=== PATIENT | female | born 1965 | race Caucasian/White ===

== ENCOUNTER 2020-11-29 16:45 | Inpatient (IN) | payer OTHER, SELFPAY ==
[2020-11-29] VITALS (9 sets, daily range): BP systolic 120–142; BP diastolic 70–80; PULSE 93–108; RESP 20–26; TEMP 37–39.4; O2SAT 82–99; BMI 37.9
--- NOTE | ~2020-11-29 | XR_ITS ---
EXAMINATION: XR chest 1V portable DATE: 12/03/2020 10:07 INDICATION: COVID-19 pneumonia. TECHNIQUE: A single frontal view of the chest was obtained. COMPARISON: Chest single view 11/29/2020 FINDINGS: There are patchy airspace opacities in all lung zones bilaterally with a peripheral predomi nance with relative sparing of the lung apices. No pleural effusion or pneumothorax. The heart size i s normal. IMPRESSION: 1. Worsened diffuse lung disease, consistent with COVID-19 pneumonia. Reviewed, dictated and finalized at location A.
--- NOTE | ~2020-11-29 | XR_ITS ---
XR chest 1V portable 11/29/2020 17:41 Indication: Hypoxia, fever and weakness Procedure: AP portable chest Comparison: No prior studies for comparison. Findings: Bibasilar airspace disease, compatible with pneumonia. Heart size upper normal. No signific ant effusion or pneumothorax. No acute osseous abnormality. Impression: 1: Bibasilar airspace disease, compatible with pneumonia. Reviewed, dictated and finalized at location A. Impression: 1: Bibasilar airspace disease, compatible with pneumonia.
--- NOTE | 2020-11-29 17:24 | ECG_ITS ---
Measurements Intervals [place] Rate: 97 P: 50 FL: 145 QRS: -28 QRSD: 106 T: 81 QT: 334 QTc: 424 Interpretive Statements SINUS RHYTHM BORDERLINE ST-T WAVE ABNORMALITY- HIGH LATERAL LEADS BASELINE ARTIFACT- I, II, III, AVR, AVL, AVF, V1-V6 BORDERLINE ECG Electronically Signed On 11-29-2020 18:59:23 CDT by Newton Quiles D.O.
[2020-11-29 17:42] LABS: Basophils Percent Auto 0.3 % (0.2-1.2); Eosinophils Absolute Auto 0.1 K/mm3 (0-0.3); Eosinophils Percent Auto 2.2 % (0-4.4); Hematocrit 43.7 % (37.0-47.0); Hemoglobin 13.7 g/dL (12.0-15.0); Immature Granulocyte Absolute 0.02 K/mm3 (0.00-0.031); Immature Granulocyte Percent A 0.3 % (0-0.5); Lymphocytes Absolute Auto 1.72 K/mm3 (0.9-3.2); Lymphocytes Percent Auto 29.3 % (18.3-44.2); Mean Corpuscular HGB Conc 31.4 g/dl (32-36); Mean Corpuscular Hemoglobin 28.5 pg (26-34); Mean Corpuscular Volume 90.9 fl (80-100); Mean Platelet Volume 10.6 fl (7.4-10.4); Monocytes Absolute Auto 0.4 K/mm3 (0.1-0.6); Neutrophils Absolute Auto 3.6 K/mm3 (1.3-6.7); Neutrophils Percent Auto 61.9 % (45.5-73.1); Platelet Count Result 159 k/mm3 (150-375); Red Blood Count 4.81 M/mm3 (4.2-5.4); White Blood Count 5.9 K/mm3 (4.5-10.0)
[2020-11-29 18:30] LABS: Anion Gap 10 mmol/L (8-16); Blood Urea Nitrogen 11 mg/dL (7-17); Calcium 8.4 mg/dL (8.4-10.2); Carbon Dioxide 29 mmol/L (22-30); Chloride 94 mmol/L (98-107); Estimated Glomerular Filt Rate > 60; Glucose 100 mg/dL (65-105); Potassium 3.4 mmol/L (3.4-5.0); Sodium 133 mmol/L (137-145)
[2020-11-29 19:01] LABS: Alveolar/Arterial O2 Gradient 86.4 mmHg; Base Excess ABG 2.8 mEq/l (+/-2.0); Fractional Inspired Oxygen 32 %; HCO3 ABG 26.7 mEq/l (22.0-26.0); Oxygen Content ABG 18.9 %vol (16.0-22.0); Oxygen Saturation ABG 97.7 % (95.0-100.0); Oxyhemoglobin 95.8 % THb (90.0-100.0); PCO2 ABG 38.7 mmHg (35.0-45.0); PO2 ABG 96.5 mmHg (80.0-100.0); PO2 FiO2 Ratio Arterial Blood 3.02 %; Site Drawn RIGHT BRACHIAL; pH ABG 7.457 (7.350-7.450)
[2020-11-29 19:02] LABS: Device NASAL CANNULA
[2020-11-29 19:31] LABS: Prothrombin Time 13.1 Seconds (11.1-14.7)
[2020-11-29 19:35] LABS: Lactic Acid Reflex 0.8 mmol/L (0.7-2.1)
--- NOTE | 2020-11-29 19:56 | ED.SOB ---
HPI - SOB/Dyspnea General Chief Complaint: Shortness of Breath/Dyspnea Stated Complaint: low oxygen level/neg covid test Time Seen by Provider: 11/29/20 18:22 Source: patient and RN notes reviewed Mode of arrival: ambulatory Limitations: no limitations History of Present Illness HPI Narrative: Patient is 55 years old white female presents with shortness of breath, fever, chills, headache, shortness of breath and the cough started 5 days ago. Patient had negative rapid Covid test today at the urgent care. When I asked the patient why SHE did not get vaccinated for COVID-19, she answered because she does not get sick. History of hypertension, patient denied any smoking Related Data Home Medications Medication Instructions Recorded Confirmed amlodipine 10 mg PO DAILY 11/29/20 11/29/20 hydrochlorothiazide 12.5 mg PO DAILY 11/29/20 11/29/20 Allergies Allergy/AdvReac Type Severity Reaction Status Date / Time No Known Allergies Allergy Verified 11/29/20 17:13 Review of Systems Review of Systems: Narrative: CONSTITUTIONAL: Denies fever, chills, or sweats. EYES: Denies visual changes, redness, or discharge. ENT: Denies rhinorrhea, congestion, sore throat, or otalgia. CARDIOVASCULAR: Denies chest pain, palpitations, or edema. RESPIRATORY: Denies cough or dyspnea. GASTROINTESTINAL: Denies abdominal pain, nausea, vomiting, or diarrhea. GENITOURINARY: Denies dysuria or hematuria. SKIN: Denies rash or itching. MUSCULOSKELETAL: Denies back pain, joint pain, or myalgia. NEUROLOGIC: Denies headache, numbness, or weakness. PSYCHIATRIC: Denies anxiety or depression. Exam Narrative: Exam Narrative: General appearance: Well-developed, well-nourished Skin: Normal color Head: Normocephalic, nontraumatic Eyes: Clear conjunctiva ENT: Oropharynx normal, ears normal, nose normal Neck: Supple, nontender Chest and respiratory: Airway patent, no respiratory distress, no accessory muscle use, few rales at the bases bilaterally Heart: Regular rate/rhythm Abdomen: Soft, nontender, no organomegaly, quiet bowel sounds Vascular: Normal peripheral pulses, normal capillary refill. Musculoskeletal: Normal range of motion, nontender back Neurologic: Alert and oriented ?3, JAZZ MUSICIAN is normal as tested, no gross motor deficit Course Course Emergency Course: Stable Vital Signs Vital signs: Vital Signs Temperature 39.4 C H 11/29/20 17:10 Pulse Rate 108 H 11/29/20 17:10 Respiratory Rate 26 H 11/29/20 17:10 Blood Pressure 142/80 H 11/29/20 17:10 Pulse Oximetry 82 L 11/29/20 17:10 Temperature 39.4 C H 11/29/20 17:10 Pulse Rate 97 11/29/20 19:39 Respiratory Rate 20 11/29/20 19:38 Blood Pressure 124/71 11/29/20 19:38 Pulse Oximetry 97 11/29/20 19:44 MDM - SOB/Dyspnea MDM Narrative Medical decision making narrative: COVID-19 infection versus community-acquired pneumonia is my concern. Labs, chest x-ray, ABG on room air, blood culture ordered. Further plan to follow Patient not been vaccinated for COVID-19. Differential Diagnosis Differential diagnosis: Likely community acquired pneumonia and other (COVID-19 infection) Lab Data Result diagrams: 11/29/20 17:35 11/29/20 18:12 Labs: Lab Results 11/29/20 11/29/20 11/29/20 Range/Units 17:35 18:12 19:06 WBC 5.9 (4.5-10.0) K/mm3 RBC 4.81 (4.2-5.4) M/mm3 Hgb 13.7 (12.0-15.0) g/dL Hct 43.7 (37.0-47.0) % MCV 90.9 (80-100) fl MCH 28.5 (26-34) pg MCHC 31.4 L (32-36) g/dl RDW 14.0 (11.5-14.5) % Plt Count 159 (150-375) k/mm3 MPV 10.6 H (7.4-10.4) fl Immature Gran % (Auto) 0.3 (0-0.5) % Neut % (Auto) 61.9 (45.5-
[2020-11-29 20:15] LABS: D Dimer 1.39 ug/mL (<0.48)
[2020-11-29 20:51] LABS: Alanine Aminotransferase 99 U/L (4-35)
--- NOTE | 2020-11-29 21:22 | PHAR ---
REMDESEVIR RAPID TEST FOR COVID WAS NEGATIVE EARLIER TODAY. PCR WAS DRAWN AROUND 1900 AND WILL NOT RESULT UNTIL TOMORROW AFTERNOON. SPOKE W/ DR. MITTAL AND HE IS CONFIDENT OF CLINICAL SIGNS/SYMPTOMS OF COVID. WILL START REMDESEVIR IN LIEU OF A POSITIVE TEST WHILE PCR RESULT IS PENDING.
[2020-11-30] VITALS: BP 121/60; PULSE 95; RESP 20; TEMP 36.7; O2SAT 96
--- NOTE | 2020-11-30 00:36 | ADMGEN ---
This patient, Rebeca Navarro, was admitted to [facility] Surg Room 311-01. Patient/family oriented to hospital policies and general routines including ID bracelet, bed and alarms, visiting hours, pain management, procedures, bathroom and other care routines, personal items, smoking policy, room service/diet, and visiting hours. Information on how to activate the Rapid Response Team has been discussed. Patient/Family are encouraged to report perceived risks to care and to ask questions if they do not understand what they are told or what they should do.
[2020-11-30] MEDS: REMDESIVIR 200 MG/NS 250 ML 200 MG/250 ML BAG 250 MG IVPB (03:37)
--- NOTE | 2020-11-30 03:44 | PM.IMHP ---
H&P: HPI History of Present Illness Date/Time: 11/30/20 03:44 Chief Complaint: SHORTNESS OF BREATH Narrative: THIS IS A 55-YEAR-OLD FEMALE WITH PAST MEDICAL HISTORY SIGNIFICANT FOR HYPERTENSION. SHE HAS BEEN ON THE ROLE WITH HER HOSPITAL FOR THE LAST 50 DAYS THEY HAVE VISITED SEVERAL TOURIST ATTRACTIONS ALSO ATTENDED A WEDDING OF ROUGHLY 50 PEOPLE IN THE OUTDOOR. PATIENT STATES THAT HER AND HER STARTED FEELING SICK WITH COUGH SHORTNESS OF BREATH NASAL CONGESTION AND DECIDED TO RETURN HOME IN CASE THAT THEY WERE GETTING SEEN SHE WENT TO URGENT CARE WHERE RAPID COVID TESTS RETURN NEGATIVE BUT PATIENT CONTINUED TO HAVE WORSENING SYMPTOMS OF MUSCLE ACHES AND PAINS FEVER CHILLS RIGORS. PRELIMINARY WORKUP IN THE EMERGENCY ROOM WAS SIGNIFICANT FOR CHEST X-RAY WITH INFILTRATES. Review of Systems Review of Systems: Narrative: COUGH SHORTNESS OF BREATH CHILLS Constitutional: Constitutional: Reports chills, Reports fatigue, Reports fever(s) and Reports lethargy Eyes: Eyes: Denies change in vision ENT: Reports nasal congestion and Reports nasal discharge Cardiovascular: Cardiovascular: Reports irregular heart rhythm, Denies leg edema, Reports radiating jaw, neck or arm pain and Reports palpitations Respiratory: Respiratory: Reports cough and Reports dyspnea Gastrointestinal: Gastrointestinal: Denies abdominal pain, Denies nausea and Denies vomiting Genitourinary: Genitourinary: Reports no additional female genitourinary complaints Musculoskeletal: Musculoskeletal: Reports myalgias Integumentary/Breasts: Skin/Breast: Denies rash Neurologic: Reports system reviewed and no additional complaints, except as documented Psychiatric: Psychiatric: Reports no additional psychiatric complaints Endocrine: Endocrine: Reports no additional endocrine complaints Hematologic/Lymphatic: Hematologic/Lymphatic: Reports no additional hematologic/lymphatic complaints Allergic/Immunologic: Allergic/Immunologic: Reports no additional allergic/immunologic complaints [facility] Social History Social History Smoking status: Never smoker Alcohol intake: current Drinks per week: 1 Substance use: never Gender identity (if verbalized by the patient): Female Spiritual care concerns: No Meds Home Medications and Allergies Home Medications Medication Instructions Recorded Confirmed Type amlodipine 10 mg PO DAILY 11/29/20 11/29/20 History hydrochlorothiazide 12.5 mg PO DAILY 11/29/20 11/29/20 History Allergies Allergy/AdvReac Type Severity Reaction Status Date / Time No Known Allergies Allergy Verified 11/29/20 17:13 Vital Signs Vital Signs - 24 hr 11/29/20 17:10 11/29/20 17:38 11/29/20 18:55 Temperature 103 F H Pulse Rate 108 H 101 H 98 Respiratory Rate 26 H 20 20 Blood Pressure 142/80 H 133/71 130/72 Pulse Oximetry 82 L 99 98 11/29/20 19:38 11/29/20 19:39 11/29/20 19:44 Temperature Pulse Rate 97 97 Respiratory Rate 20 Blood Pressure 124/71 Pulse Oximetry 97 97 11/29/20 20:43 11/29/20 21:00 11/29/20 22:37 Temperature 98.6 F Pulse Rate 100 93 Respiratory Rate 22 H 20 Blood Pressure 127/73 120/70 Pulse Oximetry 97 95 91 11/30/20 00:00 Temperature 98.0 F Pulse Rate 95 Respiratory Rate 20 Blood Pressure 121/60 Pulse Oximetry 96 Exam Narrative: Exam Narrative: SITTING IN BED Const: General: comfortable, no acute distress, well developed, alert, awake and ill appearing acutely Nutritional Appearance: average body habitus Orientation/consciousness: patient oriented x3 HENMT: Head: normal to inspection, normocephalic and atraumatic Ears: hearing grossly normal bilaterally General nose exam: Normal external nose present Face and sinus: normal facial exam Mouth: Yes Normal oral and palatal mucosa present Eyes: General: appearance normal, both eyes and all related structures Alignment and Position: alignment normal
[2020-11-30 04:00] VITALS: BP 130/63; PULSE 92; RESP 20; TEMP 36.8; O2SAT 93
[2020-11-30 06:34] LABS: INR 0.9; Prothrombin Time 12.5 Seconds (11.1-14.7)
[2020-11-30 06:56] LABS: Alanine Aminotransferase 84 U/L (4-35); Estimated CRCL calculation 79 ml/min; Estimated Glomerular Filt Rate > 60
[2020-11-30 08:00] VITALS: BP 133/62; PULSE 95; RESP 22; TEMP 37.1; O2SAT 94
[2020-11-30] MEDS: DEXAMETHASONE SOD PHOS INJ 4 MG/ML VIAL 6 MG IV PUSH (09:06)
[2020-11-30] MEDS: ENOXAPARIN 40 MG/0.4 ML SYRINGE SUB-Q ×2 (09:07→20:19)
[2020-11-30] MEDS: amLODIPine BESYLATE 5 MG TABLET 10 MG PO (09:07)
[2020-11-30 12:00] VITALS: BP 131/64; PULSE 85; RESP 20; TEMP 36.4; O2SAT 93
[2020-11-30 16:00] VITALS: BP 122/68; PULSE 86; RESP 20; TEMP 36.4; O2SAT 92
--- NOTE | 2020-11-30 18:12 | PM.IMPN ---
Progress Note: A&P Assessment and Plan (1) Acute respiratory failure with hypoxia: Code(s): J96.01 - Acute respiratory failure with hypoxia Status: Acute Assessment and Plan: PATIENT IS CURRENTLY ON SUPPLEMENTAL OXYGEN BY NASAL CANNULA BREATHING TREATMENTS LIKELY SECONDARY TO PNEUMONIA AWAITING COVID-19 PCR BLOOD CULTURES IN PROGRESS (2) Pneumonia: Qualifiers: Laterality: bilateral Lung location: lower lobe of lung Pneumonia type: due to unspecified organism Qualified Code(s): J18.9 - Pneumonia, unspecified organism Code(s): J18.9 - Pneumonia, unspecified organism Status: Acute Assessment and Plan: REMDESIVIR AND DEXAMETHASONE DAY 2 AT 2200 ROCEPHIN AND ZITHROMAX DAY 2 THIS PM SUPPORTIVE CARE (3) Hyponatremia: Code(s): E87.1 - Hypo-osmolality and hyponatremia Status: Acute Assessment and Plan: HOLDING HYDROCHLOROTHIAZIDE EUVOLEMIC LIKELY COMPONENT OF SIADH WELL 11/30 NA 133 Subjective Date/time seen: 11/30/20 18:12 Interval history: Admitted November 29 with cough shortness of breath pulmonary infiltrates. 11/30: COUGH PRODUCTIVE OF SCANT CLEAR SPUTUM. NO SOB ON 4L O2. NO CP. MILD DIARRHEA. NO DYSGEUSIA OR ANOSMIA. NO MYALGIAS. Review of Systems Review of Systems: All systems reviewed & are unremarkable except as noted in HPI and below Exam Narrative: Exam Narrative: HEENT: PERRL, sclerae nonicteric, pharyngeal mucosa pink and intact NECK: No JVD CHEST: Clear to auscultation. Normal effort. HEART: NL S1/S2, regular, no murmur ABDOMEN: BS+, soft, nontender, no mass, no bruits EXTREMITIES: No cyanosis, edema, or clubbing NEUROLOGIC: CN intact and symmetric to inspection. MUSCULOSKELETAL: Tone and strength symmetric. PSYCH: Alert. Oriented to person, place, and time. Objective Data Vital Signs Vital Signs: Vital Signs - 24 hr 11/29/20 18:55 11/29/20 19:38 11/29/20 19:39 Temperature Pulse Rate 98 97 97 Respiratory Rate 20 20 Blood Pressure 130/72 124/71 Pulse Oximetry 98 97 11/29/20 19:44 11/29/20 20:43 11/29/20 21:00 Temperature 98.6 F Pulse Rate 100 93 Respiratory Rate 22 H 20 Blood Pressure 127/73 120/70 Pulse Oximetry 97 97 95 11/29/20 22:37 11/30/20 00:00 11/30/20 04:00 Temperature 98.0 F 98.3 F Pulse Rate 95 92 Respiratory Rate 20 20 Blood Pressure 121/60 130/63 Pulse Oximetry 91 96 93 11/30/20 08:00 11/30/20 12:00 11/30/20 16:00 Temperature 98.8 F 97.6 F 97.6 F Pulse Rate 95 85 86 Respiratory Rate 22 H 20 20 Blood Pressure 133/62 131/64 122/68 Pulse Oximetry 94 93 92 Intake/Output Intake/Output: Intake & Output 11/27/20 11/28/20 11/29/20 11/30/20 23:59 23:59 23:59 23:59 Intake Total 50 2760 Output Total 1850 Balance 50 910 Meds/Results Medications: Active Medications Generic Name Dose Route Start Last Admin Trade Name Freq PRN Reason Stop Dose Admin Amlodipine Besylate 10 mg 11/30/20 09:00 11/30/20 09:07 Amlodipine Besylate 5 Mg Tablet PO 10 mg DAILY DESMOND Administration Dexamethasone Sodium Phosphate 6 mg 11/30/20 09:00 11/30/20 09:06 Dexamethasone Sod Phos Inj 4 Mg/Ml Vial IV PUSH 12/09/20 09:01 6 mg DAILY DESMOND Administration Enoxaparin Sodium 40 mg 11/30/20 09:00 11/30/20 09:07 Enoxaparin 40 Mg/0.4 Ml Syringe SUB-Q 40 mg Q12HR DESMOND Administration Remdesivir 100 mg in 250 mls @ 250 mls/hr 11/30/20 22:00 IVPB 12/03/20 22:01 Q24H DESMOND Acetaminophen 1,000 mg in 100 mls @ 400 mls/hr 11/29/20 20:05 Ofirmev 1,000 Mg Ivpb IVPB 11/30/20 20:06 Q6H PRN Mild Pain (1-3) or Fever Radiology Results: ITS Impressions Chest X-Ray 11/29/20 17:42 Impression: 1: Bibasilar airspace disease, compatible with pneumonia. Labs Labs: Laboratory Results - last 24 hr 11/29/20 11/29/20 11/29/20 18:12 18:12 18:50 PT INR APTT D-Dimer Puncture Site Right brachial ABG pH 7
[2020-11-30 20:00] VITALS: BP 122/65; PULSE 82; RESP 22; TEMP 36.4; O2SAT 91; O2SAT 92
[2020-11-30 21:20] LABS: SARS-CoV-2 RNA PCR Positive
[2020-11-30] MEDS: REMDESIVIR 100 MG/NS 250 ML 100 MG/250 ML BAG 250 MG IVPB (22:24)
[2020-12-01] VITALS (8 sets, daily range): BP systolic 107–123; BP diastolic 52–68; PULSE 72–84; RESP 16–22; TEMP 35.9–36.6; O2SAT 90–95
[2020-12-01 07:00] LABS: Alanine Aminotransferase 77 U/L (4-35); Estimated CRCL calculation 102 ml/min; Estimated Glomerular Filt Rate > 60
[2020-12-01 07:03] LABS: Prothrombin Time 13.4 Seconds (11.1-14.7)
[2020-12-01] MEDS: amLODIPine BESYLATE 5 MG TABLET 10 MG PO (08:45)
[2020-12-01] MEDS: ENOXAPARIN 40 MG/0.4 ML SYRINGE SUB-Q ×2 (08:45→20:47)
[2020-12-01] MEDS: DEXAMETHASONE SOD PHOS INJ 4 MG/ML VIAL 6 MG IV PUSH (08:46)
--- NOTE | 2020-12-01 13:42 | PM.IMPN ---
Progress Note: A&P Assessment and Plan (1) Pneumonia due to COVID-19 virus: Code(s): U07.1 - COVID-19; J12.82 - Pneumonia due to coronavirus disease 2019 Status: Acute Assessment and Plan: REMDESIVIR AND DEXAMETHASONE DAY 3 AT 2200 ROCEPHIN AND ZITHROMAX DAY 3 THIS PM ILLNESS BEGAN 11/25/2020. (2) Acute respiratory failure with hypoxia: Code(s): J96.01 - Acute respiratory failure with hypoxia Status: Acute Assessment and Plan: PATIENT IS CURRENTLY ON SUPPLEMENTAL OXYGEN BY NASAL CANNULA BREATHING TREATMENTS LIKELY SECONDARY TO PNEUMONIA AWAITING COVID-19 PCR BLOOD CULTURES IN PROGRESS (3) Hyponatremia: Code(s): E87.1 - Hypo-osmolality and hyponatremia Status: Acute Assessment and Plan: HOLDING HYDROCHLOROTHIAZIDE EUVOLEMIC LIKELY COMPONENT OF SIADH WELL 11/30 NA 133 Subjective Date/time seen: 12/01/20 13:42 Interval history: Admitted November 29 with cough shortness of breath pulmonary infiltrates. 12/01: COUGH PRODUCTIVE OF SCANT CLEAR SPUTUM. NO SOB ON 4L O2. NO CP. MILD DIARRHEA. NO DYSGEUSIA OR ANOSMIA. NO MYALGIAS. WALKING IN ROOM INTERMITTENTLY TO MAINTAIN FITNESS. Review of Systems Review of Systems: All systems reviewed & are unremarkable except as noted in HPI and below Exam Narrative: Exam Narrative: HEENT: PERRL, sclerae nonicteric, pharyngeal mucosa pink and intact NECK: No JVD CHEST: Clear to auscultation. Normal effort. HEART: NL S1/S2, regular, no murmur ABDOMEN: BS+, soft, nontender, no mass, no bruits EXTREMITIES: No cyanosis, edema, or clubbing NEUROLOGIC: CN intact and symmetric to inspection. MUSCULOSKELETAL: Tone and strength symmetric. PSYCH: Alert. Oriented to person, place, and time. Objective Data Vital Signs Vital Signs: Vital Signs - 24 hr 11/30/20 16:00 11/30/20 20:00 12/01/20 00:00 Temperature 97.6 F 97.6 F 97.8 F Pulse Rate 86 82 84 Respiratory Rate 20 22 H 20 Blood Pressure 122/68 122/65 108/55 L Pulse Oximetry 92 92 92 12/01/20 01:52 12/01/20 04:00 12/01/20 08:00 Temperature 97.1 F L 96.6 F L Pulse Rate 78 74 Respiratory Rate 22 H 18 Blood Pressure 107/57 L 113/59 L Pulse Oximetry 92 93 92 12/01/20 12:00 Temperature 96.9 F L Pulse Rate 72 Respiratory Rate 18 Blood Pressure 123/52 L Pulse Oximetry 92 Intake/Output Intake/Output: Intake & Output 11/28/20 11/29/20 11/30/20 12/01/20 23:59 23:59 23:59 23:59 Intake Total 50 3010 790 Output Total 1850 Balance 50 1160 790 Meds/Results Medications: Active Medications Generic Name Dose Route Start Last Admin Trade Name Freq PRN Reason Stop Dose Admin Amlodipine Besylate 10 mg 11/30/20 09:00 12/01/20 08:45 Amlodipine Besylate 5 Mg Tablet PO 10 mg DAILY DESMOND Administration Dexamethasone Sodium Phosphate 6 mg 11/30/20 09:00 12/01/20 08:46 Dexamethasone Sod Phos Inj 4 Mg/Ml Vial IV PUSH 12/09/20 09:01 6 mg DAILY DESMOND Administration Enoxaparin Sodium 40 mg 11/30/20 09:00 12/01/20 08:45 Enoxaparin 40 Mg/0.4 Ml Syringe SUB-Q 40 mg Q12HR DESMOND Administration Remdesivir 100 mg in 250 mls @ 250 mls/hr 11/30/20 22:00 11/30/20 23:50 IVPB 12/03/20 22:01 Infused Q24H DESMOND Infusion Radiology Results: ITS Impressions Chest X-Ray 11/29/20 17:42 Impression: 1: Bibasilar airspace disease, compatible with pneumonia. Labs Labs: Laboratory Results - last 24 hr 11/29/20 12/01/20 12/01/20 19:07 06:43 06:44 PT 13.4 INR 1.0 Creatinine 0.60 L Estim Creat Clear Calc 102 Estimated GFR > 60 ALT 77 H SARS-CoV-2 RNA (RT-PCR) Positive A
[2020-12-01] MEDS: REMDESIVIR 100 MG/NS 250 ML 100 MG/250 ML BAG 250 MG IVPB (20:47)
[2020-12-02] VITALS (8 sets, daily range): BP systolic 109–133; BP diastolic 56–70; PULSE 59–75; RESP 18–20; TEMP 35.9–36.7; O2SAT 89–94
[2020-12-02 06:50] LABS: Hematocrit 39.2 % (37.0-47.0); Hemoglobin 12.6 g/dL (12.0-15.0); Mean Corpuscular HGB Conc 32.1 g/dl (32-36); Mean Corpuscular Hemoglobin 28.8 pg (26-34); Mean Corpuscular Volume 89.5 fl (80-100); Mean Platelet Volume 10.5 fl (7.4-10.4); Platelet Count Result 210 k/mm3 (150-375); Red Blood Count 4.38 M/mm3 (4.2-5.4); Red Cell Distribution Width 13.4 % (11.5-14.5); White Blood Count 8.5 K/mm3 (4.5-10.0)
[2020-12-02 07:13] LABS: INR 1.1; Prothrombin Time 13.6 Seconds (11.1-14.7)
[2020-12-02 07:24] LABS: Alanine Aminotransferase 64 U/L (4-35); Albumin Level 3.7 g/dL (3.5-5.1); Alkaline Phosphatase 72 U/L (38-126); Anion Gap 11 mmol/L (8-16); Aspartate Amino Transferase 86 U/L (14-36); Bilirubin,Total 0.7 mg/dL (0.2-1.3); Blood Urea Nitrogen 12 mg/dL (7-17); CRP 3.8 mg/dL (<1.0); Calcium 8.7 mg/dL (8.4-10.2); Carbon Dioxide 27 mmol/L (22-30); Chloride 100 mmol/L (98-107); Estimated CRCL calculation 102 ml/min; Estimated Glomerular Filt Rate > 60; Glucose 110 mg/dL (65-105); Lactate Dehydrogenase 1192 U/L (313-618); Potassium 3.3 mmol/L (3.4-5.0); Sodium 138 mmol/L (137-145)
[2020-12-02 07:31] LABS: D Dimer 0.56 ug/mL (<0.48)
--- NOTE | 2020-12-02 08:26 | PM.IMPN ---
Progress Note: A&P Assessment and Plan (1) Pneumonia due to COVID-19 virus: Code(s): U07.1 - COVID-19; J12.82 - Pneumonia due to coronavirus disease 2018 Status: Acute Assessment and Plan: REMDESIVIR AND DEXAMETHASONE started 11/30 ROCEPHIN AND ZITHROMAX was started admission but later discontinued once COVID-19 test came back positive. Patient has normal white cell count and is afebrile DAY 3 THIS PM chest x-ray showed diffuse bilateral infiltrates ILLNESS BEGAN 11/25/2020. continue incentive spirometry monitor inflammatory markers including CRP blood cultures are negative to now (2) Acute respiratory failure with hypoxia: Code(s): J96.01 - Acute respiratory failure with hypoxia Status: Acute Assessment and Plan: PATIENT IS CURRENTLY ON SUPPLEMENTAL OXYGEN BY NASAL CANNULA at 4 L BREATHING TREATMENTS p.r.n. incentive spirometry repeat chest x-ray tomorrow (3) Hyponatremia: Code(s): E87.1 - Hypo-osmolality and hyponatremia Status: Acute Assessment and Plan: likely secondary to hydrochlorothiazide improved (4) Hypokalemia: Code(s): E87.6 - Hypokalemia Status: Acute Assessment and Plan: replace with p.o. potassium (5) Hypertension: Code(s): I10 - Essential (primary) hypertension Status: Acute Assessment and Plan: continue amlodipine Additional Plan encouraged patient to request her who also get tested. As per patient he is also symptomatic but is self quarantining at this time Lovenox for DVT prophylaxis Subjective Date/time seen: 12/02/20 08:26 Patient feels better as compared to yesterday. Continues to have cough with small amount of orangish sputum . She is able to get out of bed and walk around. Denies shortness of breath. Also complains of diarrhea with loose bowel movements but no blood as stated with. No change in sensation of taste or smell at this time continues to require 4 L of oxygen by nasal cannula. denies muscle ache chills or rigors. all the systems were reviewed and were negative Interval history: Admitted November 29 with cough shortness of breath pulmonary infiltrates. Covid 19 came back positive. Patient is not vaccinated 12/01: COUGH PRODUCTIVE OF SCANT CLEAR SPUTUM. NO SOB ON 4L O2. NO CP. MILD DIARRHEA. NO DYSGEUSIA OR ANOSMIA. NO MYALGIAS. WALKING IN ROOM INTERMITTENTLY TO MAINTAIN FITNESS. Review of Systems Review of Systems: All systems reviewed & are unremarkable except as noted in HPI and below Exam Narrative: Exam Narrative: HEENT: PERRL, sclerae nonicteric, pharyngeal mucosa pink and intact NECK: No JVD CHEST: clear to auscultation. Normal effort. HEART: NL S1/S2, regular, no murmur ABDOMEN: BS+, soft, nontender, no mass, no bruits EXTREMITIES: No cyanosis, edema, or clubbing NEUROLOGIC: CN intact and symmetric to inspection. MUSCULOSKELETAL: Tone and strength symmetric. PSYCH: Alert. Oriented to person, place, and time. Objective Data Vital Signs Vital Signs: Vital Signs - 24 hr 12/01/20 12:00 12/01/20 15:42 12/01/20 20:00 Temperature 36.1 C L 36.4 C 36.1 C L Pulse Rate 72 83 78 Respiratory Rate 18 16 20 Blood Pressure 123/52 L 109/55 L 118/68 Pulse Oximetry 92 95 90 12/01/20 20:10 12/02/20 00:00 12/02/20 04:00 Temperature 36.6 C 36.2 C L Pulse Rate 70 63 Respiratory Rate 20 20 Blood Pressure 118/63 113/58 L Pulse Oximetry 92 90 91 Intake/Output Intake/Output: Intake & Output 11/29/20 11/30/20 12/01/20 12/02/20 23:59 23:59 23:59 23:59 Intake Total 50 3010 2210 350 Output Total 1850 Balance 50 1160 2210 350 Meds/Results Medications: Active Medications Generic Name Dose Route Start Last Admin Trade Name Freq PRN Reason Stop Dose Admin Amlodipine Besylate 10 mg 11/30/20 09:00 12/01/20 08:45 Amlodipine Besylate 5 Mg Tablet PO 10 mg DAILY DESMOND Administration Dexamethasone Sodium Phosphate 6 mg 11/30
[2020-12-02] MEDS: POTASSIUM CHLORIDE 20 MEQ TABLET 40 MEQ PO (09:41)
[2020-12-02] MEDS: ENOXAPARIN 40 MG/0.4 ML SYRINGE SUB-Q ×2 (09:41→20:38)
[2020-12-02] MEDS: amLODIPine BESYLATE 5 MG TABLET 10 MG PO (09:41)
[2020-12-02] MEDS: DEXAMETHASONE SOD PHOS INJ 4 MG/ML VIAL 6 MG IV PUSH (09:42)
[2020-12-02] MEDS: REMDESIVIR 100 MG/NS 250 ML 100 MG/250 ML BAG 250 MG IVPB (20:38)
[2020-12-03] VITALS (7 sets, daily range): BP systolic 121–140; BP diastolic 59–70; PULSE 60–84; RESP 18–20; TEMP 35.8–36.9; O2SAT 90–95
[2020-12-03 06:57] LABS: Hematocrit 39.6 % (37.0-47.0); Hemoglobin 12.4 g/dL (12.0-15.0); Mean Corpuscular HGB Conc 31.3 g/dl (32-36); Mean Corpuscular Hemoglobin 28.4 pg (26-34); Mean Corpuscular Volume 90.8 fl (80-100); Mean Platelet Volume 10.3 fl (7.4-10.4); Platelet Count Result 217 k/mm3 (150-375); Red Blood Count 4.36 M/mm3 (4.2-5.4); Red Cell Distribution Width 13.5 % (11.5-14.5); White Blood Count 7.9 K/mm3 (4.5-10.0)
[2020-12-03 07:14] LABS: Alanine Aminotransferase 56 U/L (4-35); Albumin Level 3.3 g/dL (3.5-5.1); Alkaline Phosphatase 72 U/L (38-126); Anion Gap 7 mmol/L (8-16); Aspartate Amino Transferase 67 U/L (14-36); Bilirubin,Total 0.6 mg/dL (0.2-1.3); Blood Urea Nitrogen 9 mg/dL (7-17); CRP 3.2 mg/dL (<1.0); Calcium 8.4 mg/dL (8.4-10.2); Carbon Dioxide 30 mmol/L (22-30); Chloride 103 mmol/L (98-107); Estimated CRCL calculation 120 ml/min; Estimated Glomerular Filt Rate > 60; Glucose 103 mg/dL (65-105); Lactate Dehydrogenase 1105 U/L (313-618); Potassium 3.4 mmol/L (3.4-5.0); Sodium 140 mmol/L (137-145)
[2020-12-03 07:44] LABS: INR 1.1; Prothrombin Time 13.7 Seconds (11.1-14.7)
[2020-12-03 07:52] LABS: D Dimer 0.47 ug/mL (<0.48)
[2020-12-03] MEDS: POTASSIUM CHLORIDE 20 MEQ TABLET 40 MEQ PO (08:45)
[2020-12-03] MEDS: amLODIPine BESYLATE 5 MG TABLET 10 MG PO (08:46)
[2020-12-03] MEDS: ENOXAPARIN 40 MG/0.4 ML SYRINGE SUB-Q ×2 (08:46→20:41)
[2020-12-03] MEDS: DEXAMETHASONE SOD PHOS INJ 4 MG/ML VIAL 6 MG IV PUSH (08:46)
--- NOTE | 2020-12-03 14:16 | PM.IMPN ---
Progress Note: A&P Assessment and Plan (1) Acute respiratory failure with hypoxia: Code(s): J96.01 - Acute respiratory failure with hypoxia Status: Acute Assessment and Plan: SECONDARY TO COVID-19 PNEUMONIA PATIENT IS CURRENTLY ON SUPPLEMENTAL OXYGEN BY NASAL CANNULA AT 4.5 L. CONTINUE WITH IV REMDESIVIR AND DEXAMETHASONE BLOOD CULTURES ARE NEGATIVE TO DATE CONTINUE WITH SYMPTOMATIC CARE WITH P.R.N. BREATHING TREATMENTS WILL NEED TO CONSIDER HOME OXYGEN EVALUATION AND POSSIBLE DISCHARGE IN THE NEXT 1-2 DAYS IF OXYGENATION IS STABLE AND NO WORSENING SYMPTOMS (2) Pneumonia due to COVID-19 virus: Code(s): U07.1 - COVID-19; J12.82 - Pneumonia due to coronavirus disease 2018 Status: Acute Assessment and Plan: REMDESIVIR AND DEXAMETHASONE DAY #4 AT 2200 ROCEPHIN AND ZITHROMAX Was discontinued since she has a viral illness with COVID-19 ILLNESS BEGAN 11/25/2020. (3) Hyponatremia: Code(s): E87.1 - Hypo-osmolality and hyponatremia Status: Acute Assessment and Plan: HOLDING HYDROCHLOROTHIAZIDE EUVOLEMIC LIKELY COMPONENT OF SIADH WELL 12/03 NA 140, NORMAL Time Spent With Patient Time with patient: 25 - 35 minutes Subjective Date/time seen: 12/03/20 14:16 Interval history: Date of service 12/03/2020: the patient reports feeling well today. She does still have dyspnea on exertion at times. She is up walking around the room otherwise. She still has trouble taking a deep breath with her incentive spirometer. She denies much cough. Denies fevers, chills, chest pain, nausea, vomiting, abdominal pain, leg swelling, calf pain or any other symptoms at this time. Review of Systems Review of Systems: All systems reviewed & are unremarkable except as noted in HPI and below Exam Narrative: Exam Narrative: General: 55-year-old woman sitting up on the couch, resting comfortably on 4.5 L of oxygen via nasal cannula. In no acute distress. Skin: No jaundice or cyanosis. Good skin turgor. Neck: Full range of motion. Supple. Respiratory: Decreased lung sounds throughout With using a disposable stethoscope. No wheezing, rales or rhonchi auscultated on examination. No bony chest wall tenderness. Cardiovascular: The heart has a regular rate and rhythm without murmur. Lower extremities: No lower extremity edema. Distal pulses are easily palpated. No calf tenderness to palpation. Gastrointestinal: The abdomen is soft, nontender and nondistended with active bowel sounds. Psychiatric: Lucid and oriented. Memory intact. Neurologic: No focal deficits. Speech is clear. No facial drooping. Objective Data Vital Signs Vital Signs: Vital Signs - 24 hr 12/02/20 16:00 12/02/20 20:00 12/02/20 20:35 Temperature 98.1 F 96.6 F L Pulse Rate 66 75 Respiratory Rate 18 18 Blood Pressure 133/70 118/59 L Pulse Oximetry 92 90 91 12/03/20 00:00 12/03/20 04:00 12/03/20 08:00 Temperature 97.1 F L 96.6 F L 98.4 F Pulse Rate 84 74 60 Respiratory Rate 18 18 20 Blood Pressure 131/66 121/62 125/63 Pulse Oximetry 90 90 91 12/03/20 12:00 Temperature 98.1 F Pulse Rate 69 Respiratory Rate 20 Blood Pressure 131/66 Pulse Oximetry 95 Intake/Output Intake/Output: Intake & Output 11/30/20 12/01/20 12/02/20 12/03/20 23:59 23:59 23:59 23:59 Intake Total 3010 2210 1830 660 Output Total 1850 Balance 1160 2210 1830 660 Meds/Results Medications: Active Medications Generic Name Dose Route Start Last Admin Trade Name Freq PRN Reason Stop Dose Admin Albuterol 2.5 mg 12/02/20 08:33 Albuterol Sulfate Neb 2.5 Mg/0.5 Ml Inh INHALATION Q6HRT PRN Shortness Of Breath Amlodipine Besylate 10 mg 11/30/20 09:00 12/03/20 08:46 Amlodipine Besylate 5 Mg Tablet PO 10 mg DAILY DESMOND Administra
[2020-12-03] MEDS: SODIUM CHLORIDE NASAL GEL 14.1 GM 1 APPLIC NASAL (20:41)
[2020-12-03] MEDS: REMDESIVIR 100 MG/NS 250 ML 100 MG/250 ML BAG 250 MG IVPB (20:41)
[2020-12-03] MEDS: CALCIUM CARBONATE (TUMS) 500 MG (200 MG ELEMENTAL) PO (21:59)
[2020-12-04] VITALS (9 sets, daily range): BP systolic 120–136; BP diastolic 59–66; PULSE 53–81; RESP 14–20; TEMP 36.6–36.9; O2SAT 90–95
[2020-12-04 06:41] LABS: Hematocrit 39.8 % (37.0-47.0); Hemoglobin 12.4 g/dL (12.0-15.0); Mean Corpuscular HGB Conc 31.2 g/dl (32-36); Mean Corpuscular Hemoglobin 28.6 pg (26-34); Mean Corpuscular Volume 91.9 fl (80-100); Mean Platelet Volume 10.4 fl (7.4-10.4); Platelet Count Result 248 k/mm3 (150-375); Red Blood Count 4.33 M/mm3 (4.2-5.4); Red Cell Distribution Width 13.6 % (11.5-14.5); White Blood Count 8.1 K/mm3 (4.5-10.0)
[2020-12-04 07:06] LABS: Alanine Aminotransferase 61 U/L (4-35); Albumin Level 3.2 g/dL (3.5-5.1); Alkaline Phosphatase 67 U/L (38-126); Anion Gap 7 mmol/L (8-16); Aspartate Amino Transferase 76 U/L (14-36); Bilirubin,Total 0.6 mg/dL (0.2-1.3); Blood Urea Nitrogen 9 mg/dL (7-17); Calcium 8.5 mg/dL (8.4-10.2); Carbon Dioxide 28 mmol/L (22-30); Chloride 104 mmol/L (98-107); Estimated CRCL calculation 120 ml/min; Estimated Glomerular Filt Rate > 60; Glucose 101 mg/dL (65-105); Lactate Dehydrogenase 1025 U/L (313-618); Potassium 3.8 mmol/L (3.4-5.0); Sodium 139 mmol/L (137-145)
[2020-12-04 08:08] LABS: D Dimer 0.43 ug/mL (<0.48)
[2020-12-04] MEDS: amLODIPine BESYLATE 5 MG TABLET 10 MG PO (09:42)
[2020-12-04] MEDS: ENOXAPARIN 40 MG/0.4 ML SYRINGE SUB-Q ×2 (09:42→20:46)
[2020-12-04] MEDS: DEXAMETHASONE SOD PHOS INJ 4 MG/ML VIAL 6 MG IV PUSH (09:43)
--- NOTE | 2020-12-04 15:55 | PM.IMPN ---
Progress Note: A&P Assessment and Plan (1) Acute respiratory failure with hypoxia: Code(s): J96.01 - Acute respiratory failure with hypoxia Status: Acute Assessment and Plan: WILL TRY TO WEAN OFF OF OXYGEN TRY AND KEEP O2 SATURATION AT 94% SECONDARY TO COVID-19 PNEUMONIA PATIENT IS CURRENTLY ON SUPPLEMENTAL OXYGEN BY NASAL CANNULA AT 4.5 L. CONTINUE WITH IV REMDESIVIR AND DEXAMETHASONE BLOOD CULTURES ARE NEGATIVE TO DATE CONTINUE WITH SYMPTOMATIC CARE WITH P.R.N. BREATHING TREATMENTS WILL NEED TO CONSIDER HOME OXYGEN EVALUATION AND POSSIBLE DISCHARGE IN THE NEXT 1-2 DAYS IF OXYGENATION IS STABLE AND NO WORSENING SYMPTOMS (2) Pneumonia due to COVID-19 virus: Code(s): U07.1 - COVID-19; J12.82 - Pneumonia due to coronavirus disease 2018 Status: Acute Assessment and Plan: REMDESIVIR AND DEXAMETHASONE DAY #4 AT 2200 ROCEPHIN AND ZITHROMAX Was discontinued since she has a viral illness with COVID-19 ILLNESS BEGAN 11/25/2020. (3) Hyponatremia: Code(s): E87.1 - Hypo-osmolality and hyponatremia Status: Acute Assessment and Plan: CONTINUE TO MONITOR SODIUM IS WITHIN NORMAL LIMITS TODAY HOLDING HYDROCHLOROTHIAZIDE EUVOLEMIC LIKELY COMPONENT OF SIADH WELL 12/03 NA 140, NORMAL Subjective Date/time seen: 12/04/20 15:55 I FEEL BETTER Interval history: DATE OF SERVICE 12/04/2020 PATIENT STATES THAT SHE FEELS WELL SHE IS STILL ON 4 L OF OXYGEN BY NASAL CANULA Date of service 12/03/2020: the patient reports feeling well today. She does still have dyspnea on exertion at times. She is up walking around the room otherwise. She still has trouble taking a deep breath with her incentive spirometer. She denies much cough. Denies fevers, chills, chest pain, nausea, vomiting, abdominal pain, leg swelling, calf pain or any other symptoms at this time. Review of Systems Review of Systems: All systems reviewed & are unremarkable except as noted in HPI and below Constitutional: Constitutional: Reports chills, Reports fatigue, Reports fever(s) and Reports lethargy Eyes: Eyes: Denies change in vision ENT: Reports nasal congestion and Reports nasal discharge Cardiovascular: Cardiovascular: Reports irregular heart rhythm, Denies leg edema, Reports radiating jaw, neck or arm pain, Reports palpitations and Reports dyspnea Respiratory: Respiratory: Reports cough and Reports dyspnea Gastrointestinal: Gastrointestinal: Denies abdominal pain, Denies nausea and Denies vomiting Genitourinary: Genitourinary: Reports no additional female genitourinary complaints Musculoskeletal: Musculoskeletal: Reports myalgias Integumentary/Breasts: Skin/Breast: Denies rash Neurologic: Reports system reviewed and no additional complaints, except as documented Psychiatric: Psychiatric: Reports no additional psychiatric complaints Endocrine: Endocrine: Reports no additional endocrine complaints, Reports fatigue and Reports palpitations Hematologic/Lymphatic: Hematologic/Lymphatic: Reports no additional hematologic/lymphatic complaints Allergic/Immunologic: Allergic/Immunologic: Reports no additional allergic/immunologic complaints Exam Narrative: Exam Narrative: SITTING IN COUCH Const: General: comfortable, no acute distress, well developed, alert, awake and ill appearing acutely Nutritional Appearance: average body habitus Orientation/consciousness: patient oriented x3 HENMT: Head: normal to inspection, normocephalic and atraumatic Ears: hearing grossly normal bilaterally General nose exam: Normal external nose present Face and sinus: normal facial exam Mouth: Yes Normal oral and palatal mucosa present Eyes: General: appearance normal, both eyes and all related structures Alignment and Position: alignment normal Pu
[2020-12-04] MEDS: SALINE 0.65% NAS SOLN 44 ML BTL 1 SPRAY NASAL (20:46)
[2020-12-04] MEDS: SODIUM CHLORIDE NASAL GEL 14.1 GM 1 APPLIC NASAL (20:48)
[2020-12-05] VITALS (11 sets, daily range): BP systolic 126–148; BP diastolic 63–66; PULSE 52–87; RESP 16–94; TEMP 36–36.4; O2SAT 87–96
[2020-12-05 06:42] LABS: Hematocrit 41.1 % (37.0-47.0); Hemoglobin 12.7 g/dL (12.0-15.0); Mean Corpuscular HGB Conc 30.9 g/dl (32-36); Mean Corpuscular Hemoglobin 28.8 pg (26-34); Mean Corpuscular Volume 93.2 fl (80-100); Mean Platelet Volume 10.4 fl (7.4-10.4); Platelet Count Result 242 k/mm3 (150-375); Red Blood Count 4.41 M/mm3 (4.2-5.4); Red Cell Distribution Width 13.6 % (11.5-14.5)
[2020-12-05 06:58] LABS: Alanine Aminotransferase 83 U/L (4-35); Albumin Level 3.4 g/dL (3.5-5.1); Alkaline Phosphatase 76 U/L (38-126); Anion Gap 9 mmol/L (8-16); Aspartate Amino Transferase 96 U/L (14-36); Bilirubin,Total 0.7 mg/dL (0.2-1.3); Blood Urea Nitrogen 11 mg/dL (7-17); CRP 1.1 mg/dL (<1.0); Calcium 8.6 mg/dL (8.4-10.2); Carbon Dioxide 25 mmol/L (22-30); Chloride 104 mmol/L (98-107); Estimated CRCL calculation 120 ml/min; Estimated Glomerular Filt Rate > 60; Glucose 102 mg/dL (65-105); Lactate Dehydrogenase 1131 U/L (313-618); Potassium 3.9 mmol/L (3.4-5.0); Sodium 138 mmol/L (137-145)
[2020-12-05 07:02] LABS: D Dimer 0.37 ug/mL (<0.48)
[2020-12-05 08:46] LABS: Prothrombin Time 13.3 Seconds (11.1-14.7)
[2020-12-05] MEDS: ENOXAPARIN 40 MG/0.4 ML SYRINGE SUB-Q (09:11)
[2020-12-05] MEDS: amLODIPine BESYLATE 5 MG TABLET 10 MG PO (09:11)
[2020-12-05] MEDS: DEXAMETHASONE SOD PHOS INJ 4 MG/ML VIAL 6 MG IV PUSH (09:12)
[2020-12-05] MEDS: REMDESIVIR 100 MG/NS 250 ML 100 MG/250 ML BAG 250 MG IVPB (09:24)
--- NOTE | 2020-12-05 11:00 | HOMEO2EVAL ---
Evaluation was performed at [facility] Home Oxygen Evaluation RC: Home Oxygen (O2) Evaluation Start: 12/05/20 07:53 Freq: ONCE Status: Active Protocol: RPE Activity Type Activity Date Activity User E-Sign Co-Sign Detail Recorded Client Recorded Date Recorded By Document 12/05/20 10:05 [email or web address] 12/05/20 11:00 DJO Document 12/05/20 10:10 [email or web address] 12/05/20 11:00 DJO Document 12/05/20 10:15 [email or web address] 12/05/20 11:00 DJO Document 12/05/20 10:20 [email or web address] 12/05/20 11:00 DJO Document 12/05/20 10:30 [email or web address] [email or web address] 12/05/20 11:00 DJO 12/05/20 12/05/20 12/05/20 10:05 10:10 10:15 Home O2 Evaluation Test Phase Resting Resting Resting Oxygen Delivery Room Air Nasal Cannula Nasal Cannula Oxygen Flow Rate (L/min) 1 2 Pulse Oximetry (90-100 %) 87 L 88 L 91 Pulse Rate (60-100 beats/min) 64 66 65 Activity Tolerance Treatment Charges O2 Evaluation - Inpatient 12/05/20 12/05/20 10:20 10:30 Home O2 Evaluation Test Phase Exercise Resting Oxygen Delivery Nasal Cannula Nasal Cannula Oxygen Flow Rate (L/min) 2 2 Pulse Oximetry (90-100 %) 90 91 Pulse Rate (60-100 beats/min) 87 68 Activity Tolerance Good Treatment Charges
--- NOTE | 2020-12-05 14:27 | PCRCNOTE ---
Home o2 eval done, tank in room for transport home, care medical dme.
--- NOTE | 2020-12-05 14:47 | PM.DS ---
DS: Admitting Diagnosis Admitting Diagnosis Admitting Diagnosis: SOB DS: Discharge Diagnosis Discharge Diagnosis (1) Acute respiratory failure with hypoxia: Code(s): J96.01 - Acute respiratory failure with hypoxia Status: Acute Assessment and Plan: The patient is a 55-year-old woman with a history of hypertension, who presented to the emergency room with worsening symptoms of shortness of breath, cough, nasal congestion, body aches, fevers, chills since 11/25/2020. Initial vitals showed she had a fever of 103, tachycardic heart rate 108, respiratory rate increased at 26, blood pressure slightly elevated at 140 2/80, and she was hypoxic at 82% on room air. Initial labs showed normal CBC with differential, normal coag panel, elevated D-dimer at 1.39, ABG showing elevated pH at 7.457, pCO2 38.7, HCO3 26.7, pO2 96.5 normal on 3L via NC. slight hyponatremia at 133, normal renal function, AST elevated at 99. She was found a positive for COVID-19 on 11/29/2020. She was placed in isolation. Started on IV Remdesivir and Decadron. Blood cultures were negative to date. She had symptomatic care with breathing treatments and continue to improve over the last few days. She had a home oxygen evaluation completed today showing that she needs 2 L of oxygen at rest and with exertion. Explained to her the importance of having a pulse oximeter. Wean her oxygen as tolerated. Continuing oral dexamethasone for a few more days for a total of 10 days treatment. Return to ER warnings given. Follow-up with primary care in 2 weeks. Patient understands and agrees the plan all questions answered. The patient is not vaccinated and still is unsure if she will be come vaccinated after having COVID-19. (2) Pneumonia due to COVID-19 virus: Code(s): U07.1 - COVID-19; J12.82 - Pneumonia due to coronavirus disease 2018 Status: Acute Assessment and Plan: (3) Hyponatremia: Code(s): E87.1 - Hypo-osmolality and hyponatremia Status: Acute Assessment and Plan: CONTINUE TO MONITOR SODIUM IS WITHIN NORMAL LIMITS WAS HOLDING HYDROCHLOROTHIAZIDE EUVOLEMIC LIKELY COMPONENT OF SIADH WELL 12/05 NA 138, NORMAL DS: Summary Hospital Course Hospital Course: See above Status at Discharge Cognitive/behavioral status at discharge: Stable, improved. Time Spent with Patient Time attestation: Total time spent providing and/or coordinating discharge services: 43 Time spent: Greater than 30 minutes Exam Narrative: Exam Narrative: General: 55-year-old woman sitting up in bed, resting comfortably on 2 L of oxygen via nasal cannula. In no acute distress. Skin: No jaundice or cyanosis. Good skin turgor. Neck: Full range of motion. Supple. Respiratory: Decreased lung sounds throughout with using a disposable stethoscope. No wheezing, rales or rhonchi auscultated on examination. No bony chest wall tenderness. Cardiovascular: The heart has a regular rate and rhythm without murmur. Lower extremities: No lower extremity edema. Distal pulses are easily palpated. No calf tenderness to palpation. Gastrointestinal: The abdomen is soft, nontender and nondistended with active bowel sounds. Psychiatric: Lucid and oriented. Memory intact. Neurologic: No focal deficits. Speech is clear. No facial drooping. DS: Data Data Completed and Pending Labs on day of discharge: Labs from last 24 hours 12/05/20 12/05/20 12/05/20 06:07 06:07 06:07 WBC RBC Hgb Hct MCV MCH MCHC RDW Plt Count MPV PT INR D-Dimer 0.37 Sodium 138 Potassium 3.9 Chloride 104 Carbon Dioxide 25 Anion Gap 9 BUN 11 Creatinine 0.50 L Estim Creat Clear Calc 120 Estimated GFR > 60 Glucose 102 Calcium 8.6 Jeanine
== END 2020-12-05 16:10 | disposition home or self-care (01) | DRG 177 ==
LOC: ANHED 20:09 → ANH3MEDSUR 11-30 08:53
PROVIDERS: Internal Medicine; Admitting Provider Internal Medicine; Emergency Provider Emergency Medicine; PCP Nurse Practitioner Family; Visit Provider Physician Assistant
DX: U07.1 COVID-19 (principal); J12.82 Pneumonia due to coronavirus disease 2019; J96.01 Acute respiratory failure with hypoxia; E87.1 Hypo-osmolality and hyponatremia; T50.2X5A Adverse effect of carbonic-anhydrase inhibitors, benzothiadiazides and other diuretics, initial encounter; I10 Essential (primary) hypertension
CPT/HCPCS: 36415; 36600; 71045; 80048; 80053; 82565; 82728; 82805; 83605; 83615; 84460; 85025; 85027; 85380; 85610; 85730; 86140; 87040; 87804; 93005; 94618; 96365; 96367; 96372; 96375; 96376; 99285; A9270; C9803; G0378; J0456; J0696; J1100; J1650; U0003; U0005